=== PATIENT | male | born 1990 | race African-American/Black ===

== ENCOUNTER 2024-07-28 05:48 | Emergency (ER) | payer SELFPAY ==
[2024-07-28] VITALS (14 sets, daily range): BP systolic 111–149; BP diastolic 54–95; PULSE 63–104; RESP 12–20; O2SAT 95–100
--- NOTE | ~2024-07-28 | CT_ITS ---
CT of the Abdomen and Pelvis: Indication: Abdominal pain, abnormal LFTs Technique: 2.5 mm axial scans were obtained through the abdomen and pelvis following intravenous adm inistration of 100 cc of Omnipaque 350. Dose reduction technique was used on this scan by utilizing a utomated exposure control and iterative reconstruction technique. The dose-length product (DLP) was 3 21.71 mGy-cm. Findings: Scans through the lung bases are unremarkable. The liver, spleen, pancreas, gallbladder, adrenals and kidneys are within normal limits. No evidence of aortic aneurysm. No lymphadenopathy. No bowel obstruction or bowel wall thickening. There is no evidence to suggest acute appendicitis. Images through the pelvis were performed. Urinary bladder unremarkable. No pelvic mass seen. No ascit es. Impression: No significant abnormalities seen. Reviewed, dictated and finalized at [facility]. Impression: No significant abnormalities seen.
[2024-07-28 06:15] LABS: Basophils Percent Auto 0.5 % (0.2-1.2); Eosinophils Absolute Auto 0.1 K/mm3 (0-0.3); Eosinophils Percent Auto 0.9 % (0-4.4); Hematocrit 44.1 % (42.0-52.0); Hemoglobin 15.3 g/dL (14.0-18.0); Immature Granulocyte Absolute 0.08 K/mm3 (0.00-0.031); Immature Granulocyte Percent A 0.9 % (0-0.5); Lymphocytes Absolute Auto 1.78 K/mm3 (0.9-3.2); Lymphocytes Percent Auto 20.6 % (18.3-44.2); Mean Corpuscular HGB Conc 34.7 g/dl (32-36); Mean Corpuscular Volume 83.7 fl (80-100); Mean Platelet Volume 9.2 fl (7.4-10.4); Monocytes Absolute Auto 1.2 K/mm3 (0.1-0.6); Neutrophils Absolute Auto 5.4 K/mm3 (1.3-6.7); Neutrophils Percent Auto 63.1 % (45.5-73.1); Platelet Count Result 229 k/mm3 (150-375); Red Blood Count 5.27 M/mm3 (4.6-6.20); Red Cell Distribution Width 11.9 % (11.5-14.5); White Blood Count 8.6 K/mm3 (4.5-10.0)
--- NOTE | 2024-07-28 06:21 | ED_ITS ---
HPI - Abdominal Pain General Chief Complaint: GI Bleed <Malachi Kramer MD - Last Filed: 07/28/24 20:53> Stated Complaint: blood in stool <Malachi Kramer MD - Last Filed: 07/28/24 20:53> Time Seen by Provider: 07/28/24 05:55 <Malachi Kramer MD - Last Filed: 07/28/24 20:53> History of Present Illness HPI narrative: 34-year-old otherwise healthy male presenting to the emergency depart with a chief complaint of intermittent nausea, vomiting, dry heaves, diarrhea and abdominal cramping for almost 1 week. Patient states that he smokes significant amounts of marijuana including up to 4 blunts a day and has never had issues. He denies any sick contacts or recent illnesses. He states that he has lots of junk food, but denies any significant alcohol intake or other substance use. Endorses 1 week of cramping intermittent lower abdominal pain that comes and goes sporadically. He has had multiple episodes of diarrhea with some mucus and 1 episode of blood a week ago that resolved. No rectal pain or rectal pressure. History of pyloric stenosis in childhood, no abdominal surgeries otherwise. No trauma or injury. <Malachi Kramer MD - Last Filed: 07/28/24 20:53> Related Data Allergies/Adverse Reactions: Allergies Allergy/AdvReac Type Severity Reaction Status Date / Time No Known Allergies Allergy Verified 07/28/24 06:23 <Malachi Kramer MD - Last Filed: 07/28/24 20:53> Review of Systems 2 Review of Systems: As reviewed above in HPI <Malachi Kramer MD - Last Filed: 07/28/24 20:53> Exam 2 Narrative: GENERAL: [Well-appearing, well-nourished, and in no acute distress.] HEAD: [Normocephalic, atraumatic.] EYES: [PERRLA and EOMI.] ENT: Nares clear, no rhinorrhea or epistaxis. Mucous membranes moist. NECK: Supple. CHEST: [Clear to auscultation. No respiratory distress.] HEART: [Regular rate and rhythm]. No murmur heard. [Normal peripheral pulses.] ABDOMEN: [Soft, nondistended], mild tenderness to palpation diffusely, [No rigidity or guarding] EXTREMITIES: Normal range of motion. [No edema.] SKIN: Warm, dry, no rash. NEURO: [No focal deficits]. Alert and oriented [x3.] PSYCH: [Normal mood and affect.] <Malachi Kramer MD - Last Filed: 07/28/24 20:53> Course Course Emergency Course: Patient resting comfortably. No vomiting. Potassium normalized. Discharge home with supportive care. <Isai Costa MD - Last Filed: 07/28/24 11:02> Vital Signs Vital signs: Vital Signs Pulse Rate 104 H 07/28/24 05:55 Respiratory Rate 12 07/28/24 05:55 Blood Pressure 149/84 H 07/28/24 05:55 Pulse Oximetry 95 07/28/24 05:55 Oxygen Delivery Room Air 07/28/24 05:55 Pulse Rate 78 07/28/24 10:00 Respiratory Rate 20 07/28/24 10:00 Blood Pressure 117/72 07/28/24 08:53 Pulse Oximetry 99 07/28/24 10:00 Oxygen Delivery Room Air 07/28/24 05:55 <Malachi Kramer MD - Last Filed: 07/28/24 20:53> Vital Signs Pulse Rate 104 H 07/28/24 05:55 Respiratory Rate 12 07/28/24 05:55 Blood Pressure 149/84 H 07/28/24 05:55 Pulse Oximetry 95 07/28/24 05:55 Oxygen Delivery Room Air 07/28/24 05:55 Pulse Rate 78 07/28/24 10:00 Respiratory Rate 20 07/28/24 10:00 Blood Pressure 117/72 07/28/24 08:53 Pulse Oximetry 99 07/28/24 10:00 Oxygen Delivery Room Air 07/28/24 05:55 <Isai Costa MD - Last Filed: 07/28/24 11:02> MDM - Abdominal Pain MDM Narrative Medical decision making narrative: 34-year-old otherwise healthy male with no chronic medical conditions presenting to the emergency department for 1 week of nausea, vomiting, intermittent abdominal cramping and some occasional loose stool. He had 1 episode of we referred to his bloody diarrhea week ago that resolved. He states that he smokes significant amounts of marijuana including up to 4 blunts per day and endorses sporadic alcohol use and lots of junk food. Denies any abdominal surgeries besides pyloric stenosis as an . No trauma or injury. He is otherwise well-appearing and does appear to have some waves of abdominal cramping throughout the examination. Mild abdominal tenderness but no signs of peritonitis or rigidity or guarding. He is mildly tachycardic with a heart rate of 104. Present suspicion is for potential gastroenteritis, gastritis, peptic ulcer, appendicitis, diverticulitis or pancreatitis less likely. Given his significant marijuana intake cannabinoid hyperemesis and abdominal pain secondary this is higher on the differential. Patient will be given a combination medications including haloperidol for nausea and vomiting control as well as Bentyl and fluids for pain and rehydration. He was given D5 LR and laboratory studies obtained. CT of the abdomen pelvis with IV contrast obtained. Laboratory studies showed no leukocytosis or anemia. He does have some electrolyte deficiencies including a potassium of 2.7, likely from nausea, vomiting, GI losses. Mildly elevated LFTs. Normal glucose. Normal renal function. Patient was given 20 mEq IV potassium and 40 mEq p.o. and repeat BMP will be drawn several hours. CT scan of the abdomen pelvis is ordered and pending. EKG ordered secondary to the potassium deficiency. Patient care signed out to oncoming ER physician at 7:[address] scan and repeat labs. <Malachi Kramer MD - Last Filed: 07/28/24 20:53> Medical Records Attestation: I reviewed the patient's medical records. <Malachi Kramer MD - Last Filed: 07/28/24 20:53> Lab Data Attestation: I reviewed the patient's lab results. <Malachi Kramer MD - Last Filed: 07/28/24 20:53> Result diagrams: 07/28/24 06:08 07/28/24 10:05 <Malachi Kramer MD - Last Filed: 07/28/24 20:53> Labs: Lab Results 07/28/24 07/28/24 07/28/24 Range/Units 06:08 06:53 10:05 WBC 8.6 (4.5-10.0) K/mm3 RBC 5.27 (4.6-6.20) M/mm3 Hgb 15.3 (14.0-18.0) g/dL Hct 44.1 (42.0-52.0) % MCV 83.7 (80-100) fl MCH 29.0 (26-34) pg MCHC 34.7 (32-36) g/dl RDW 11.9 (11.5-14.5) % Plt Count 229 (150-375) k/mm3 MPV 9.2 (7.4-10.4) fl Immature Gran % (Auto) 0.9 H (0-0.5) % Neut % (Auto) 63.1 (45.5-73.1) % Lymph % (Auto) 20.6 (18.3-44.2) % Garden % (Auto) 14.0 H (2.6-8.5) % Eos % (Auto) 0.9 (0-4.4) % Baso % (Auto) 0.5 (0.2-1.2) % Lymph # (Auto) 1.78 (0.9-3.2) K/mm3 Garden # (Auto) 1.2 H (0.1-0.6) K/mm3 Eos # (Auto) 0.1 (0-0.3) K/mm3 Baso # (Auto) 0.0 (0.0-0.1) K/mm3 Abs Immat Gran (auto) 0.08 H (0.00-0.031) K/mm3 Absolute Neuts (auto) 5.4 (1.3-6.7) K/mm3 Absolute Nucleated RBC 0.000 (0.0-0.012) K/mm3 Nucleated RBC % 0.0 (0.0-0.2) % PT 13.5 (11.1-14.7) Seconds INR 1.0 APTT 26.8 (22.3-36.8) Seconds Sodium 134 L 131 L 133 L (137-145) mmol/L Potassium 2.7 L* 2.8 L* 3.4 (3.4-5.0) mmol/L Chloride 96 L 97 L 99 (98-107) mmol/L Carbon Dioxide 26 25 28 (22-30) mmol/L Anion Gap 12 9 6 (4-12) mmol/L BUN 13 13 11 (9-20) mg/dL Creatinine 1.09 1.02 1.00 (0.7-1.3) mg/dL Estim Creat Clear Calc 87 93 94 ml/min Estimated GFR > 60 > 60 > 60 (59 - ) Glucose 104 117 H 102 (65-110) mg/dL Calcium 9.2 8.5 8.7 (8.4-10.2) mg/dL Total Bilirubin 0.9 (0.2-1.3) mg/dL AST 192 H (17-59) U/L ALT 79 H (6-50) U/L Alkaline Phosphatase 73 (38-126) U/L Total Protein 7.0 (6.3-8.2) g/dL Albumin 4.2 (3.5-5.1) g/dL Blood Type O Positive Antibody Screen Negative <Malachi Kramer MD - Last Filed: 07/28/24 20:53> Lab Results 07/28/24 07/28/24 07/28/24 Range/Units 06:08 06:53 10:05 WBC 8.6 (4.5-10.0) K/mm3 RBC 5.27 (4.6-6.20) M/mm3 Hgb 15.3 (14.0-18.0) g/dL Hct 44.1 (42.0-52.0) % MCV 83.7 (80-100) fl MCH 29.0 (26-34) pg MCHC 34.7 (32-36) g/dl RDW 11.9 (11.5-14.5) % Plt Count 229 (150-375) k/mm3 MPV 9.2 (7.4-10.4) fl Immature Gran % (Auto) 0.9 H (0-0.5) % Neut % (Auto) 63.1 (45.5-73.1) % Lymph % (Auto) 20.6 (18.3-44.2) % Garden % (Auto) 14.0 H (2.6-8.5) % Eos % (Auto) 0.9 (0-4.4) % Baso % (Auto) 0.5 (0.2-1.2) % Lymph # (Auto) 1.78 (0.9-3.2) K/mm3 Garden # (Auto) 1.2 H (0.1-0.6) K/mm3 Eos # (Auto) 0.1 (0-0.3) K/mm3 Baso # (Auto) 0.0 (0.0-0.1) K/mm3 Abs Immat Gran (auto) 0.08 H (0.00-0.031) K/mm3 Absolute Neuts (auto) 5.4 (1.3-6.7) K/mm3 Absolute Nucleated RBC 0.000 (0.0-0.012) K/mm3 Nucleated RBC % 0.0 (0.0-0.2) % PT 13.5 (11.1-14.7) Seconds INR 1.0 APTT 26.8 (22.3-36.8) Seconds Sodium 134 L 131 L 133 L (137-145) mmol/L Potassium 2.7 L* 2.8 L* 3.4 (3.4-5.0) mmol/L Chloride 96 L 97 L 99 (98-107) mmol/L Carbon Dioxide 26 25 28 (22-30) mmol/L Anion Gap 12 9 6 (4-12) mmol/L BUN 13 13 11 (9-20) mg/dL Creatinine 1.09 1.02 1.00 (0.7-1.3) mg/dL Estim Creat Clear Calc 87 93 94 ml/min Estimated GFR > 60 > 60 > 60 (59 - ) Glucose 104 117 H 102 (65-110) mg/dL Calcium 9.2 8.5 8.7 (8.4-10.2) mg/dL Total Bilirubin 0.9 (0.2-1.3) mg/dL AST 192 H (17-59) U/L ALT 79 H (6-50) U/L Alkaline Phosphatase 73 (38-126) U/L Total Protein 7.0 (6.3-8.2) g/dL Albumin 4.2 (3.5-5.1) g/dL Blood Type O Positive Antibody Screen Negative <Isai Costa MD - Last Filed: 07/28/24 11:02> Imaging Data Radiologist's impression: ITS Impressions Abdomen/Pelvis CT 07/28/24 07:30 Impression: No significant abnormalities seen. <Malachi Kramer MD - Last Filed: 07/28/24 20:53> ITS Impressions Abdomen/Pelvis CT 07/28/24 07:30 Impression: No significant abnormalities seen. <Isai Costa MD - Last Filed: 07/28/24 11:02> Discharge Plan Discharge Clinical Impression: Abdominal pain, Acute hypokalemia, Nausea vomiting and diarrhea, Cannabis use disorder <Malachi Kramer MD - Last Filed: 07/28/24 20:53> Patient Disposition: Home <Malachi Kramer MD - Last Filed: 07/28/24 20:53> Condition: Stable <Malachi Kramer MD - Last Filed: 07/28/24 20:53> Instructions: Antibiotic Form, Acute Nausea and Vomiting (ED) <Malachi Kramer MD - Last Filed: 07/28/24 20:53> Additional Instructions: Return to the emergency department if you develop severe abdominal pain, severe nausea and vomiting to the point where you are unable to keep down fluids, if you develop chest pain or difficulty breathing, blood in your stool, dizziness or fainting, or if you develop any other new or concerning symptoms as these could be signs of more serious medical illness. Try to stay well hydrated. <Malachi Kramer MD - Last Filed: 07/28/24 20:53> Patient Language: Belarusian <Malachi Kramer MD - Last Filed: 07/28/24 20:53> Prescriptions: New dicyclomine 20 mg tablet 20 mg PO QID Qty: 20 0RF ondansetron 4 mg tablet,disintegrating 4 mg PO Q6H PRN (Reason: nausea and vomiting) Qty: 10 0RF famotidine 20 mg tablet 20 mg PO BID Qty: 14 0RF <Malachi Kramer MD - Last Filed: 07/28/24 20:53> Follow-up/Referrals: UNKNOWN,DOCTOR [Primary Care Provider] - 1 Week <Malachi Kramer MD - Last Filed: 07/28/24 20:53>
[2024-07-28] MEDS: DEXTROSE 5%/LACTATED RINGERS 1,000 ML 999 ML IV CONT (06:25)
[2024-07-28 06:26] LABS: Alanine Aminotransferase 79 U/L (6-50); Albumin Level 4.2 g/dL (3.5-5.1); Alkaline Phosphatase 73 U/L (38-126); Anion Gap 12 mmol/L (4-12); Aspartate Amino Transferase 192 U/L (17-59); Bilirubin,Total 0.9 mg/dL (0.2-1.3); Blood Urea Nitrogen 13 mg/dL (9-20); Calcium 9.2 mg/dL (8.4-10.2); Carbon Dioxide 26 mmol/L (22-30); Chloride 96 mmol/L (98-107); Estimated CRCL calculation 87 ml/min; Estimated Glomerular Filt Rate > 60; Glucose 104 mg/dL (65-110); Potassium 2.7 mmol/L (3.4-5.0); Sodium 134 mmol/L (137-145)
[2024-07-28] MEDS: DICYCLOMINE HCL INJ 20 MG/2 ML VIAL IM (06:28)
[2024-07-28] MEDS: HALOPERIDOL LACTATE 5 MG/ML VIAL 2.5 MG IV PUSH (06:28)
[2024-07-28 06:31] LABS: Prothrombin Time 13.5 Seconds (11.1-14.7)
[2024-07-28 06:32] LABS: Partial Thromboplastin Time 26.8 Seconds (22.3-36.8)
[2024-07-28] MEDS: POTASSIUM CHLORIDE 20 MEQ ER TABLET 40 MEQ PO (06:48)
[2024-07-28] MEDS: KCL 20 MEQ/SW 100 ML 100 ML 50 MEQ IVPB (06:51)
[2024-07-28 07:11] LABS: Anion Gap 9 mmol/L (4-12); Blood Urea Nitrogen 13 mg/dL (9-20); Calcium 8.5 mg/dL (8.4-10.2); Carbon Dioxide 25 mmol/L (22-30); Chloride 97 mmol/L (98-107); Estimated CRCL calculation 93 ml/min; Estimated Glomerular Filt Rate > 60; Glucose 117 mg/dL (65-110); Potassium 2.8 mmol/L (3.4-5.0); Sodium 131 mmol/L (137-145)
--- NOTE | 2024-07-28 07:11 | PC.NURSE ---
Potassium slowed down to 30mL/hr due to patient complaining of burning with infusion
--- NOTE | 2024-07-28 07:12 | ECG_ITS ---
Test Date: 2024-07-28 07:22:19 Measurements Intervals [place] Rate: 68 P: 75 MD: 128 QRS: 88 QRSD: 88 T: 69 QT: 420 QTc: 447 Interpretive Statements SINUS RHYTHM No previous ECG available for comparison Electronically Signed On 07-28-2024 15:05:49 CDT by Naveen Fowler M.D.
--- NOTE | 2024-07-28 07:34 | PC.NURSE ---
Patient ambulated to the restroom with steady gate
--- NOTE | 2024-07-28 09:07 | PC.NURSE ---
per Tabby RN 0900 repeat BMP is to be drawn after IV potassium finishes infusing.
[2024-07-28 10:20] LABS: Anion Gap 6 mmol/L (4-12); Blood Urea Nitrogen 11 mg/dL (9-20); Calcium 8.7 mg/dL (8.4-10.2); Carbon Dioxide 28 mmol/L (22-30); Chloride 99 mmol/L (98-107); Estimated CRCL calculation 94 ml/min; Estimated Glomerular Filt Rate > 60; Glucose 102 mg/dL (65-110); Potassium 3.4 mmol/L (3.4-5.0); Sodium 133 mmol/L (137-145)
== END 2024-07-28 11:15 | disposition home or self-care (01) ==
PROVIDERS: Emergency Provider Student in an Organized Health Care Education/Training Program
DX: R11.2 Nausea with vomiting, unspecified (principal); R19.7 Diarrhea, unspecified; R10.9 Unspecified abdominal pain; E87.6 Hypokalemia; F12.90 Cannabis use, unspecified, uncomplicated
CPT/HCPCS: 36415; 74177; 80048; 80053; 85025; 85610; 85730; 86850; 86900; 86901; 93005; 96365; 96366; 96372; 96375; 99284; A9270; J0500; J1630; J3480; J7121; Q9967